=== PATIENT | male | born 1975 ===

== ENCOUNTER 2023-09-04 12:07 | Emergency (ER) | payer MEDICARE, SELFPAY ==
[2023-09-04 12:09] VITALS: BP 140/85; PULSE 86; RESP 17; TEMP 36.7; O2SAT 97; BMI 33.5
--- NOTE | 2023-09-04 12:20 | XR_ITS ---
WS: [id number] Right shoulder, 2 views, 09/04/2023 Clinical Data: trauma Comparison: None. Findings: No fractures are seen. The distal clavicle may be subluxed inferiorly compared with the acromion. Th e glenohumeral joint is normal. The adjacent right scapula and ribs are normal. The soft tissues are unremarkable. Impression: Subluxation inferiorly of the distal clavicle compared to the acromion which may be chronic
--- NOTE | 2023-09-04 12:20 | XR_ITS ---
WS: [id number] Cervical spine, 4 views, 09/04/2023 Clinical Data: trauma Comparison: None. Findings: No compression fractures are seen. There is disc space narrowing at C6-C7 with anterior ost eophytes. There is no prevertebral soft tissue swelling. The odontoid is unremarkable. The soft ti ssues of the neck and the lung apices are normal. Impression: Degenerative disc narrowing at C6-C7 with osteophytes.
[2023-09-04 12:33] VITALS: BP 157/93; PULSE 84; O2SAT 97
[2023-09-04 12:39] LABS: Basophils % 1.1 %; Eosinophils # 0.2 10^3/uL (0.0-0.8); Eosinophils % 5.4 %; Hematocrit 33.6 % (37-53); Lymphocytes # 1.5 10^3/uL (0.8-4.8); Lymphocytes % 41.8 %; Mean Corpuscular HGB Conc 28.9 g/dL (30-55); Mean Corpuscular Hemoglobin 21.2 pg (27-33); Mean Corpuscular Volume 73.4 fl (82-101); Mean Platelet Volume 10.8 fL (7.4-10.4); Monocytes # 0.3 10^3/uL (0.2-0.9); Monocytes % 7.3 %; Neutrophils # 1.62 10^3/uL (1.8-7.7); Neutrophils % 44.1 %; Nucleated Red Blood Cells % 0 %; Platelet Count 208 10^3/cmm (157-399); Red Blood Count 4.58 10^6/uL (3.85-5.65); Red Cell Distribution Width 17.3 % (12.1-15.1); White Blood Count 3.68 10^3/uL (3.29-11.43)
[2023-09-04 13:21] LABS: Alanine Aminotransferase 13 U/L (0-41); Albumin Level 4.2 g/dL (3.5-5.2); Alkaline Phosphatase 109 U/L (40-130); Anion Gap 13.8 (5-19); Aspartate Amino Transferase 20 U/L (0-40); Blood Urea Nitrogen 14 mg/dL (6-20); Calcium 8.5 mg/dL (8.5-10.5); Carbon Dioxide 26 mmol/L (22-29); Chloride 102 mmol/L (98-107); Creatinine Clr Calc Pharmacy 140.1729; Globulin 3.3 g/dL (1.3-4.6); Glomerular Filtration Rate 102.7 mL/min (90-130); Glucose 87 mg/dL (65-115); Osmolality Calculated 286 mOsm/kg (285-295); Potassium 3.8 mmol/L (3.5-5.1); Sodium 138 mmol/L (136-145); Total Bilirubin 0.2 mg/dL (0.15-1.2); Total Protein 7.5 g/dL (6.6-8.7)
--- NOTE | 2023-09-04 13:54 | XR_ITS ---
WS: [id number] AP views of both AC joints with and without weights, 09/04/2023 Clinical Data: R AC joint pain Comparison: Right shoulder, 09/04/2023 Findings: Again the right AC joint shows slight inferior subluxation compared to the normal left AC joint. With weights there is no change in the alignment of the AC joints. There are no fractures seen. The shoul doreen joints are unremarkable. Impression: Slight inferior subluxation of the right AC joint which may be a chronic finding.
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
[2023-09-04 15:07] LABS: Add Urine Microscopic? YES; Bacteria Urine 2+ /hpf; Bilirubin Urine 1+ (Negative); Blood Urine Neg (Negative); Glucose Urine UA Norm (Normal); Ketones Urine 1+ (Negative); Leukocyte Esterase Urine Trace (Negative); Mucus Urine 2+ /hpf; Nitrate Urine Negative (Negative); Protein Urine Trace (Negative); RBC Urine 0-4 /hpf (0-2); Specific Gravity, Urine 1.025 (1.005-1.030); Squamous Epithelial Cell Urine 0-4 /hpf (0-5); Urine Appearance Clear (CLEAR); Urine Color Yellow (Yellow); Urobilinogen Urine Neg (Negative); WBC Urine 0-4 /hpf (0-5); pH Urine 5 (5-7)
[2023-09-04 15:08] LABS: Add Urine Culture? No
[2023-09-04 15:44] VITALS: BP 157/93; PULSE 84; RESP 17; TEMP 36.7; O2SAT 97
--- NOTE | 2023-09-04 16:03 | DCPLANNER ---
A message was sent to Ortho on 09/04/23 at [id number]. [facility] to contact patient for appt
== END 2023-09-04 15:47 | disposition home or self-care (01) ==
PROVIDERS: Emergency Provider Family Medicine
DX: M25.511 Pain in right shoulder (principal)
CPT/HCPCS: 72040; 73030; 73050; 80053; 81001; 85025; 99284